=== PATIENT | male | born 1995 | race Caucasian/White ===

== ENCOUNTER 2017-03-14 23:57 | Emergency (ER) | payer OTHER ==
--- NOTE | 2017-03-15 06:48 | ER ---
ADMIT: 03/14/2017 RM/LOC: ER [facility] MR#: [id number] [address] [id number] RADHA HUNT [address] [place] [address] Emergency Room Report SEX: M AGE: 21 : 1995 DATE: 03/15/2017 The patient is a 21-year-old male, complaining of throbbing headaches associated with photophobia throughout the day, becoming increasingly delirious. The patient is a diabetic. Exam remarkable for nontoxic, afebrile male. Blood sugar 211. Normal blood gases, lactic, ammonia minimally elevated at 36. D-dimer within normal limits. Negative alcohol and tox screen. CT head negative. EKG is sinus rhythm with repolarization change. The patient given IV fluids, Zofran, magnesium, Toradol, DHE with marked improvement. Follow up Dr. Aceves as needed. Lexx Marin MD/ modl JOB #: [id number] CC: Lexx Marin MD, Attending Physician Johnny Aceves MD, Family Physician Johnny Aceves MD
== END 2017-03-15 02:12 | disposition home or self-care (01) ==
LOC: ER 23:57
DX: G43.909 Migraine, unspecified, not intractable, without status migrainosus (principal); E10.9 Type 1 diabetes mellitus without complications; F17.210 Nicotine dependence, cigarettes, uncomplicated; Z79.4 Long term (current) use of insulin; Z79.899 Other long term (current) drug therapy